=== PATIENT | male | born 1965 | race Caucasian/White ===

== ENCOUNTER 2016-07-01 05:14 | Day surgery (SDC) | payer OTHER ==
[2016-07-01] MEDS ORDERED: LACTATED RINGERS 1,000 ML IV ONE ×2 (14:01→17:16)
[2016-07-01] MEDS ORDERED: ceFAZolin 1 GM VIAL ONE (14:52)
[2016-07-01] MEDS ORDERED: BUPIVACAINE 0.5%-EPI 1:200000 PF 30 ML VIAL SUBQ ONE (16:09)
[2016-07-01] MEDS ORDERED: PROPOFOL 200 MG/20 ML VIAL IVP ONE (16:15)
[2016-07-01] MEDS ORDERED: LIDOCAINE-MPF 2% 5 ML VIAL IM ONE (16:15)
[2016-07-01] MEDS ORDERED: ONDANSETRON 4 MG/2 ML VIAL IVP ONE (16:15)
[2016-07-01] MEDS ORDERED: fentaNYL 100 MCG/2 ML VIAL IVP ONE (16:15)
[2016-07-01] MEDS ORDERED: MIDAZOLAM 2 MG/2 ML VIAL IVP ONE (16:15)
[2016-07-01] MEDS ORDERED: DEXAMETHASONE 4 MG/ML VIAL IVP ONE (16:15)
== END 2016-07-01 08:46 | disposition home or self-care (01) ==
PROC: 07BJ0ZX Excision of Left Inguinal Lymphatic, Open Approach, Diagnostic (ICD-10-PCS; 2016-07-01)
PROC: 0YU60JZ Supplement Left Inguinal Region with Synthetic Substitute, Open Approach (ICD-10-PCS; principal; 2016-07-01 14:15)
DX: K40.30 Unilateral inguinal hernia, with obstruction, without gangrene, not specified as recurrent (principal); I88.9 Nonspecific lymphadenitis, unspecified; F17.200 Nicotine dependence, unspecified, uncomplicated; Z88.0 Allergy status to penicillin
CPT/HCPCS: 36415; 38500; 49507; 74176; 80053; 83690; 85025; 93005; 99284; C1781; J7120

== ENCOUNTER 2017-03-25 07:19 | Emergency (ER) | payer OTHER ==
--- NOTE | 2017-03-25 07:22 | ED Physician Documentation ---
PD HPI CHEST PAIN - Stated complaint Stated Complaint: CHEST PX/LEFT ARM SORE - History obtained from History obtained from: Patient - History of Present Illness Timing - onset: Today (he had some intermittent chest pain yesterday, then onset steady chest pain about an hour or so [employer].) Timing - onset during: Rest Timing - duration: Hours (1) Timing - details: Abrupt onset, Still present Quality: Tightness, Aching Location: Substernal Radiation: Left upper extremity Associated symptoms: No: Shortness of air, Nausea, Palpitations, Cough Similar symptoms before: Has not had sx before Recently seen: Not recently seen Review of Systems Constitutional: denies: Fever Nose: denies: Rhinorrhea / runny nose, Congestion Throat: denies: Sore throat Cardiac: reports: Chest pain / pressure (some yesterday intermittently.) Respiratory: denies: Cough GI: denies: Abdominal Pain, Nausea, Vomiting Skin: denies: Rash, Lesions PD PAST MEDICAL HISTORY - Past Medical History Cardiovascular: None Respiratory: None Endocrine/Autoimmune: None GI: None : None HEENT: Chronic vision loss Psych: Anxiety Musculoskeletal: None Derm: None - Past Surgical History Past Surgical History: No - Present Medications Home Medications: Ambulatory Orders Medication Instructions Recorded Confirmed Fexofenadine HCl [Marilee Allergy] 60 mg PO DAILY 03/25/17 03/25/17 - Allergies Allergies/Adverse Reactions: Allergies Allergy/AdvReac Type Severity Reaction Status Date / Time Penicillins Allergy Unknown Verified 03/25/17 07:28 - Social History Does the pt smoke?: Yes Smoking Status: Current every day smoker Does the pt drink ETOH?: Yes Does the pt have substance abuse?: No - Family History Family history: reports: Unknown - Immunizations Immunizations are current?: Yes - POLST Patient has POLST: No PD ED PE NORMAL - Vitals Vital signs reviewed: Yes - General General: Alert and oriented X 3, No acute distress, Well developed/nourished - HEENT HEENT: Moist mucous membranes, Pharynx benign - Neck Neck: Supple, no meningeal sign, No adenopathy - Cardiac Cardiac: RRR, No murmur - Respiratory Respiratory: Clear bilaterally - Abdomen Abdomen: Soft, Non tender - Derm Derm: Normal color, Warm and dry - Extremities Extremities: Normal ROM s pain, No edema, No calf tenderness / cord - Neuro Neuro: Alert and oriented X 3, No motor deficit, Normal speech Results - Vitals Vitals: Vital Signs - 24 hr 03/25/17 07:24 Temperature 36.8 C Heart Rate 77 Respiratory 16 Rate Blood Pressure 150/90 H O2 Saturation 98 Oxygen O2 Source Room air - EKG (time done) 07:23 Rate: Rate (enter#) (72) Rhythm: NSR Intervals: Normal AR QRS: Normal Ischemia: ST elevation c/w ischemia (Inferior leads c/w STEMI) PD MEDICAL DECISION MAKING - ED course Complexity details: reviewed results (STEMI on ECG, and initiated STEMI treatment. ), considered differential, d/w patient - Critical Care Time(min): 20 Time Includes: Direct patient care, Reassess patient, Document care, Coordinate care, Medical consult, See progress note Procedures excluded from critical care time: EKG Departure - Departure Disposition: 02 Transfer Acute Care Hosp Clinical Impression: ST elevation myocardial infarction (STEMI) of inferior wall Condition: Critical Record reviewed to determine appropriate education?: Yes
[2017-03-25] MEDS ORDERED: CLOPIDOGREL 300 MG TABLET PO STA (07:32)
[2017-03-25] MEDS ORDERED: METOPROLOL 5 MG/5 ML VIAL IVP STA (07:32)
[2017-03-25] MEDS ORDERED: ASPIRIN CHEW 81 MG TABLET PO STA (07:32)
[2017-03-25] MEDS ORDERED: SODIUM CHLORIDE 0.9% 500 ML IV ONE (07:33)
[2017-03-25] MEDS ORDERED: HEPARIN 5,000 UNIT/ML VIAL IVP STA (07:38)
[2017-03-25] MEDS ORDERED: HEPARIN 25,000 UNITS/500 ML NS 25,000 UNIT/500 ML BAG IV STA (07:38)
[2017-03-25] MEDS ORDERED: CLOPIDOGREL 300 MG TABLET PO ONE (07:43)
[2017-03-25] MEDS ORDERED: METOPROLOL 5 MG/5 ML VIAL IVP ONE (07:43)
[2017-03-25] MEDS ORDERED: ASPIRIN CHEW 81 MG TABLET ONE (07:43)
[2017-03-25] MEDS ORDERED: HEPARIN 25,000 UNITS/500 ML NS 25,000 UNIT/500 ML BAG IV ONE (07:43)
--- NOTE | 2017-03-25 07:53 | XRAY Preliminary Report ---
Exam: XR CHEST 1 VIEW IMPRESSION: Normal single view chest. [facility] SITE ID: [id number]
--- NOTE | 2017-03-25 07:55 | XRAY Report ---
EXAM: CHEST RADIOGRAPHY EXAM DATE: 03/25/2017 07:41 AM. CLINICAL HISTORY: Chest pain. COMPARISON: None. TECHNIQUE: 1 view. FINDINGS: Lungs/Pleura: No focal opacities evident. No pleural effusion. No pneumothorax. Mediastinum: Within exam limitations, the cardiomediastinal contour is normal. Other: None. IMPRESSION: Normal single view chest. [facility] Referring Provider Line: [phone] SITE ID: [id number]
[2017-03-25] MEDS ORDERED: HEPARIN 5,000 UNIT/ML VIAL ONE (07:56)
[2017-03-25 08:06] LABS: BASOPHILS # (AUTO) 0.1 10^3/uL (0.0-0.1); BASOPHILS % (AUTO) 1.3 %; EOSINOPHILS # (AUTO) 0.2 10^3/uL (0.0-0.7); EOSINOPHILS % (AUTO) 3.1 %; HCT - HEMATOCRIT 45.1 % (42.0-52.0); HGB - HEMOGLOBIN 15.7 g/dL (14.0-18.0); LYMPHOCYTES # (AUTO) 2.7 10^3/uL (1.5-3.5); LYMPHOCYTES % (AUTO) 33.9 %; MEAN CORPUSCULAR HEMOGLOBIN 33.2 pg (27.0-31.0); MEAN CORPUSCULAR HGB CONC 34.8 g/dL (32.0-36.0); MEAN CORPUSCULAR VOLUME 95.7 fL (80.0-94.0); MEAN PLATELET VOLUME 8.8 fL (7.4-11.4); MONOCYTES # (AUTO) 0.5 10^3/uL (0.0-1.0); MONOCYTES % (AUTO) 6.5 %; NEUTROPHILS # (AUTO) 4.3 10^3/uL (1.5-6.6); NEUTROPHILS % (AUTO) 55.2 %; NUCLEATED RED BLOOD CELLS AUTO 0.1 /100WBC; RED BLOOD COUNT 4.72 10^6/uL (4.70-6.10); RED CELL DISTRIBUTION WIDTH 13.4 % (12.0-15.0); UNCORRECTED WHITE BLOOD COUNT 7.8 x10^3/uL; WHITE BLOOD COUNT 7.8 x10^3/uL (4.8-10.8)
[2017-03-25 08:08] VITALS: BP 138/90
[2017-03-25 08:19] LABS: ALBUMIN/GLOBULIN RATIO 1.5 (1.0-2.2); BILIRUBIN,TOTAL 0.5 mg/dL (0.2-1.0); CALCIUM 9.5 mg/dL (8.5-10.3); CREATININE 0.9 mg/dL (0.6-1.2); POTASSIUM 4.3 mmol/L (3.5-5.0); TOTAL PROTEIN 7.7 g/dL (6.7-8.2)
== END 2017-03-25 07:52 | disposition short-term general hospital (02) ==
LOC: ED 07:19
DX: I21.19 ST elevation (STEMI) myocardial infarction involving other coronary artery of inferior wall (principal); F17.200 Nicotine dependence, unspecified, uncomplicated
CPT/HCPCS: 36415; 71010; 80053; 83690; 84484; 85025; 93005; 96374; 96375; 96376; 99284; 99285; A9270

== ENCOUNTER 2017-03-25 07:57 | Outpatient (CLI) | payer OTHER | END 2017-03-25 07:58 | disposition short-term general hospital (02) | LOC: EMS 07:57 | PROVIDERS: ATTEND Surgery | DX: I21.3 ST elevation (STEMI) myocardial infarction of unspecified site (principal) | CPT/HCPCS: A0425; A0427 ==

== ENCOUNTER 2017-03-30 09:11 | Outpatient (CLI) | payer OTHER | END 2017-03-30 09:12 | disposition short-term general hospital (02) | LOC: EMS 09:11 | PROVIDERS: ATTEND Surgery | DX: R07.9 Chest pain, unspecified (principal) | CPT/HCPCS: A0425; A0427 ==

== ENCOUNTER 2017-04-11 09:48 | Outpatient (CLI) | payer OTHER | END 2017-04-11 09:49 | disposition short-term general hospital (02) | LOC: EMS 09:48 | PROVIDERS: ATTEND Surgery | DX: R07.89 Other chest pain (principal) | CPT/HCPCS: A0170; A0425; A0427 ==

== ENCOUNTER 2017-12-14 12:39 | Outpatient (CLI) | payer OTHER ==
[2017-12-14 13:16] LABS: BASOPHILS # (AUTO) 0.1 10^3/uL (0.0-0.1); BASOPHILS % (AUTO) 0.8 %; EOSINOPHILS # (AUTO) 0.1 10^3/uL (0.0-0.7); EOSINOPHILS % (AUTO) 1.4 %; HGB - HEMOGLOBIN 13.2 g/dL (14.0-18.0); LYMPHOCYTES # (AUTO) 2.2 10^3/uL (1.5-3.5); LYMPHOCYTES % (AUTO) 33.1 %; MEAN CORPUSCULAR HEMOGLOBIN 32.7 pg (27.0-31.0); MEAN CORPUSCULAR HGB CONC 34.9 g/dL (32.0-36.0); MEAN CORPUSCULAR VOLUME 93.8 fL (80.0-94.0); MEAN PLATELET VOLUME 7.7 fL (7.4-11.4); MONOCYTES # (AUTO) 0.4 10^3/uL (0.0-1.0); NEUTROPHILS % (AUTO) 58.7 %; PLT - PLATELET COUNT 178 10^3/uL (130-450); RED BLOOD COUNT 4.04 10^6/uL (4.70-6.10); RED CELL DISTRIBUTION WIDTH 13.6 % (12.0-15.0); WHITE BLOOD COUNT 6.7 x10^3/uL (4.8-10.8)
[2017-12-14 13:20] LABS: PT - PROTHROMBIN TIME 11.4 secs (9.9-12.6)
[2017-12-14 13:24] LABS: ALBUMIN 4.4 g/dL (3.2-5.5); ALBUMIN/GLOBULIN RATIO 1.6 (1.0-2.2); BILIRUBIN,TOTAL 0.8 mg/dL (0.2-1.0); CALCIUM 9.2 mg/dL (8.5-10.3); CREATININE 0.9 mg/dL (0.6-1.2); TOTAL PROTEIN 7.2 g/dL (6.7-8.2)
== END 2017-12-14 12:40 | disposition home or self-care (01) ==
LOC: LAB 12:39
PROVIDERS: ATTEND Internal Medicine Cardiovascular Disease
DX: E78.5 Hyperlipidemia, unspecified (principal)
CPT/HCPCS: 36415; 80053; 85025; 85610; 85730

== ENCOUNTER 2018-02-17 07:31 | Outpatient (CLI) | payer OTHER ==
[2018-02-17 07:52] LABS: BASOPHILS # (AUTO) 0.1 10^3/uL (0.0-0.1); BASOPHILS % (AUTO) 1.4 %; EOSINOPHILS # (AUTO) 0.1 10^3/uL (0.0-0.7); EOSINOPHILS % (AUTO) 1.7 %; HGB - HEMOGLOBIN 14.1 g/dL (14.0-18.0); LYMPHOCYTES # (AUTO) 2.2 10^3/uL (1.5-3.5); LYMPHOCYTES % (AUTO) 39.6 %; MEAN CORPUSCULAR HEMOGLOBIN 32.9 pg (27.0-31.0); MEAN CORPUSCULAR HGB CONC 35.4 g/dL (32.0-36.0); MEAN CORPUSCULAR VOLUME 92.9 fL (80.0-94.0); MONOCYTES # (AUTO) 0.4 10^3/uL (0.0-1.0); MONOCYTES % (AUTO) 6.8 %; NEUTROPHILS # (AUTO) 2.8 10^3/uL (1.5-6.6); NEUTROPHILS % (AUTO) 50.5 %; PLT - PLATELET COUNT 163 10^3/uL (130-450); RED BLOOD COUNT 4.29 10^6/uL (4.70-6.10); RED CELL DISTRIBUTION WIDTH 13.1 % (12.0-15.0); WHITE BLOOD COUNT 5.5 x10^3/uL (4.8-10.8)
[2018-02-17 08:13] LABS: ALBUMIN 4.4 g/dL (3.2-5.5); ALBUMIN/GLOBULIN RATIO 1.5 (1.0-2.2); ALKALINE PHOSPHATASE 55 IU/L (42-121); ALT ALANINE AMINOTRANSFERASE 54 IU/L (10-60); AST ASPARTATE AMINOTRANSFERASE 33 IU/L (10-42); BILIRUBIN,TOTAL 0.5 mg/dL (0.2-1.0); BUN - BLOOD UREA NITROGEN 18 mg/dL (6-20); CALCIUM 9.3 mg/dL (8.5-10.3); CARBON DIOXIDE - CO2 24 mmol/L (21-32); CHLORIDE 105 mmol/L (101-111); CK- CREATINE KINASE 98 IU/L (22-269); CREATININE 0.9 mg/dL (0.6-1.2); GFR - MDRD 88 (>89); GLUCOSE 109 mg/dL (70-100); SODIUM 139 mmol/L (135-145); TOTAL PROTEIN 7.3 g/dL (6.7-8.2)
[2018-02-17 08:18] LABS: CRP - C-REACTIVE PROTEIN < 1.0 mg/dL (0-1.0)
== END 2018-02-17 07:32 | disposition home or self-care (01) ==
LOC: LAB 07:31
PROVIDERS: ATTEND Internal Medicine Cardiovascular Disease
DX: M79.10 Myalgia, unspecified site (principal); K70.0 Alcoholic fatty liver; I25.10 Atherosclerotic heart disease of native coronary artery without angina pectoris
CPT/HCPCS: 36415; 80053; 82550; 85025; 85651; 86140

== ENCOUNTER 2020-03-02 11:00 | Emergency (ER) | payer OTHER ==
--- NOTE | 2020-03-02 11:42 | ED Physician Documentation ---
PD HPI FOCAL NEURO - Stated complaint Stated Complaint: LT ARM/LEG NUMBNESS, CHEST SORE LT SIDE - Chief complaint Chief Complaint: Cardiac - History obtained from History obtained from: Patient - Additional information Additional information: 55-year-old gentleman with history of hypercholesterolemia, coronary disease, stents in place, and quit smoking 3 years ago presents with mild left upper chest pain and left arm and leg numbness. It started last night. He noted the arm and leg numbness last night. Went away. Recurred this morning around 7 AM. Also with some chest soreness that he only feels if he presses just below the left clavicle. There is no shortness of breath. No weakness. No headache. Review of Systems Ten Systems: 10 systems reviewed and negative Constitutional: denies: Fever, Chills Cardiac: denies: Palpitations Respiratory: denies: Dyspnea, Cough GI: denies: Abdominal Pain PD PAST MEDICAL HISTORY - Past Medical History Cardiovascular: None Respiratory: None Endocrine/Autoimmune: None GI: None : None HEENT: Chronic vision loss Psych: Anxiety Musculoskeletal: None Derm: None - Past Surgical History Past Surgical History: No - Present Medications Home Medications: Ambulatory Orders Medication Instructions Recorded Confirmed Fexofenadine HCl [Marilee Allergy] 60 mg PO DAILY 03/25/17 03/25/17 - Allergies Allergies/Adverse Reactions: Allergies Allergy/AdvReac Type Severity Reaction Status Date / Time Penicillins Allergy Unknown Verified 03/02/20 11:11 - Social History Does the pt smoke?: Yes Smoking Status: Current every day smoker Does the pt drink ETOH?: Yes Does the pt have substance abuse?: No - Immunizations Immunizations are current?: Yes - POLST Patient has POLST: No PD ED PE NORMAL - Vitals Vital signs reviewed: Yes - General General: Alert and oriented X 3, No acute distress - HEENT HEENT: PERRL, EOMI - Neck Neck: Supple, no meningeal sign, No bony TTP - Cardiac Cardiac: RRR, No murmur - Respiratory Respiratory: No respiratory distress, Clear bilaterally - Abdomen Abdomen: Normal bowel sounds, Soft, Non tender - Back Back: No CVA TTP, No spinal TTP - Extremities Extremities: No edema, No calf tenderness / cord - Neuro Neuro: Alert and oriented X 3, No motor deficit, No sensory deficit, Normal speech NIHSS - Time Time: 11:30 - Level of Consciousness Level of consciousness: (0) Alert, Keenly responsive LOC Questions: (0) Answers both Q's correct LOC Commands: (0) Performs both correctly - Gaze Best Gaze: (0) Normal - Visual Visual: (0) No loss - Facial Palsy Facial Palsy: (0) Normal, symmetrical movement - Motor Arms (both separate) Motor Arm (right): (0) No drift Motor Arm (left): (0) No drift - Motor Legs (both separate) Motor Leg (right): (0) No drift Motor Leg (left): (0) No drift - Limb Ataxia Limb Ataxia: (0) Absent - Sensory Sensory: (0) Normal - Best Language Best Language: (0) No aphasia - Dysarthria Dysarthria: (0) Normal - Extinction and Inattention (formally neg Extinction and inattention: (0) No abnormality - Total Score/Results Total Score/Result: 0 Results - Vitals Vitals: Vital Signs - 24 hr 03/02/20 03/02/20 11:12 13:00 Temperature 36.8 C Heart Rate 66 60 Respiratory 16 13 Rate Blood Pressure 141/85 H 125/80 O2 Saturation 98 97 Oxygen O2 Source Room air - EKG (time done) 1116 Rate: Rate (enter#) (65) Rhythm: NSR [place]: Normal Intervals: Normal MA Ischemia: Normal ST segments, Q waves (inferior) Computer interpretation: Agree with computer - Labs Labs: Laboratory Tests 03/02/20 03/02/20 03/02/20 11:27 11:27 11:27 WBC 6.6 RBC 4.53 L Hgb 14.4 Hct 42.5 MCV 93.8 MCH 31.8 H MCHC 33.9 RDW 12.6 Plt Count 186 MPV 10.1 Neut # (Auto) 3.8 Lymph # (Auto) 2.3 [place] # (Auto) 0.4 Eos # (Auto) 0.1 Baso # (Auto) 0.1 Absolute Nucleated RBC 0.00 Nucleated RBC % 0.0 Sodium 136 Potassium 4.2 Chloride 102 Carbon Dioxide 23 Anion Gap 11.0 BUN 22 H Creatinine 0.9 Estimated GFR (MDRD) 87 L Glucose 107 H Calcium 9.7 Total Bilirubin 0.9 AST 26 ALT 44 Alkaline Phosphatase 55 Troponin I High Sens 3.3 Total Protein 7.6 Albumin 4.7 Globulin 2.9 Albumin/Globulin Ratio 1.6 Lipase 28 PD MEDICAL DECISION MAKING - ED course ED course: 55-year-old gentleman with left-sided numbness, now very atypical pain. No evidence of ischemia on work-up, negative stroke scale and negative angiography of the head and neck except for atherosclerosis but nothing occlusive. Departure - Departure Disposition: 01 Home, Self Care Clinical Impression: Chest wall pain, Paresthesia Condition: Good Record reviewed to determine appropriate education?: Yes Instructions: ED Chest Pain Atypical Unkn Cause Comments: Continue current medications and follow-up with your doctor, next available appointment. Return if worsening. We did CT angiography of the head and neck today, you do have some plaque in your carotid arteries but nothing occlusive. Your brain looks fine. Chest x-ray was normal. Testing on the heart including EKG and troponin testing was normal. Discharge Date/Time: 03/02/20 13:58
[2020-03-02 11:48] LABS: BASOPHILS # (AUTO) 0.1 10^3/uL (0.0-0.1); BASOPHILS % (AUTO) 0.8 %; EOSINOPHILS # (AUTO) 0.1 10^3/uL (0.0-0.7); EOSINOPHILS % (AUTO) 1.4 %; HGB - HEMOGLOBIN 14.4 g/dL (14.0-18.0); LYMPHOCYTES # (AUTO) 2.3 10^3/uL (1.5-3.5); LYMPHOCYTES % (AUTO) 34.5 %; MEAN CORPUSCULAR HEMOGLOBIN 31.8 pg (27.0-31.0); MEAN CORPUSCULAR HGB CONC 33.9 g/dL (32.0-36.0); MEAN CORPUSCULAR VOLUME 93.8 fL (80.0-94.0); MEAN PLATELET VOLUME 10.1 fL (7.4-11.4); MONOCYTES # (AUTO) 0.4 10^3/uL (0.0-1.0); MONOCYTES % (AUTO) 5.8 %; NEUTROPHILS # (AUTO) 3.8 10^3/uL (1.5-6.6); NEUTROPHILS % (AUTO) 57.3 %; PLT - PLATELET COUNT 186 10^3/uL (130-450); RED BLOOD COUNT 4.53 10^6/uL (4.70-6.10); RED CELL DISTRIBUTION WIDTH 12.6 % (12.0-15.0); WHITE BLOOD COUNT 6.6 x10^3/uL (4.8-10.8)
[2020-03-02] MEDS ORDERED: IOVERSOL 320 100 ML VIAL IVP ONE ×2 (11:55→18:17)
[2020-03-02 12:01] LABS: ALBUMIN 4.7 g/dL (3.2-5.5); ALBUMIN/GLOBULIN RATIO 1.6 (1.0-2.2); BILIRUBIN,TOTAL 0.9 mg/dL (0.2-1.0); CALCIUM 9.7 mg/dL (8.5-10.3); CREATININE 0.9 mg/dL (0.6-1.2); TOTAL PROTEIN 7.6 g/dL (6.7-8.2)
--- NOTE | 2020-03-02 12:20 | XRAY Report ---
PROCEDURE: Chest 1 View X-Ray INDICATIONS: Chest Pain TECHNIQUE: One view of the chest was acquired. COMPARISON: 03/25/2017 FINDINGS: Surgical changes and devices: None. Lungs and pleura: No pleural effusions or pneumothorax. Lungs are clear. Mediastinum: Mediastinal contours appear normal. Heart size is normal. Bones and chest wall: No suspicious bony lesions. Overlying soft tissues appear unremarkable. IMPRESSION: No acute cardiopulmonary pathology. Reviewed by: Liam Gary MD on 03/02/2020 11:18 AM LALITA Approved by: Liam Gary MD on 03/02/2020 11:18 AM AKDT Station ID: [id number]
--- NOTE | 2020-03-02 12:44 | CT Report ---
PROCEDURE: ANGIO HEAD W/WO INDICATIONS: Left sided numbness CONTRAST: IV CONTRAST: Optiray 320 ml: 80 PO CONTRAST: *NO PO CONTRAST TECHNIQUE: Precontrast 4.5 mm thick angled axial sections acquired from the foramen magnum to the vertex. Afte r the administration of intravenous contrast, 1 mm thick sections acquired through the [place] of [place] is. Postcontrast 4.5 mm thick sections then re-acquired from the foramen magnum to the vertex. 3-di mensional [id number] (MIP) and/or volume rendering reformats were acquired of the c entral intracranial vasculature. For radiation dose reduction, the following was used: automated ex posure control, adjustment of mA and/or kV according to patient size. COMPARISON: Concurrent CT angiogram of the neck. FINDINGS: Image quality: Excellent. Anterior circulation: Intracranial internal carotid arteries are normal in size and flow. There is m ild scattered atherosclerotic plaque within the cavernous segments of the internal carotid arteries b ilaterally with mild multifocal narrowing. The paired anterior cerebral arteries is patent bilaterall y. The flow middle cerebral arteries is patent bilaterally. The anterior communicating artery is see n. No aneurysms are seen. Posterior circulation: There is a right dominant vertebral basilar system with a diminutive left flavio tebral artery. Visualized portions of the vertebral arteries appear patent, and join to form a normal appearing basilar artery. Flow within the posterior cerebral arteries appears patent bilaterally. No aneurysms are seen. CSF spaces: Ventricles are normal in size and shape. Basal cisterns are patent. No extra-axial flu id collections. Brain: No intracranial hemorrhage, mass, or mass effect. Allen-white matter interface appears intact. Skull and face: Calvarium and facial bones appear intact, without suspicious lesions. Sinuses: Visualized sinuses and mastoids are clear. IMPRESSION: 1. No acute intracranial abnormality. 2. No high-grade stenosis, occlusion, or filling defects within the central intracranial arteries. Reviewed by: Rodrigo Patel MD on 03/02/2020 12:43 PM PDT Approved by: Rodrigo Patel MD on 03/02/2020 12:43 PM PDT Station ID: [id number]
--- NOTE | 2020-03-02 12:54 | CT Report ---
PROCEDURE: ANGIO NECK W INDICATIONS: L sided numbness CONTRAST: IV CONTRAST: Optiray 320 ml: 80 PO CONTRAST: *NO PO CONTRAST TECHNIQUE: After the administration of intravenous contrast, 1.5 mm axial sections acquired from the aortic arch to the [place] of [place]. Coronal 3-D maximum intensity projection (MIP) and/or volume rendering ref ormats were then performed. For radiation dose reduction, the following was used: automated exposur e control, adjustment of mA and/or kV according to patient size. COMPARISON: Concurrent CT angiogram of the head. FINDINGS: Image quality: Excellent. Carotid system: The great vessels demonstrate a four-vessel aortic arch with separate origin of the left vertebral artery as they arise from the aortic arch. The origins of the common carotid arteries appear patent. The common carotid arteries demonstrate normal calibers and courses. There is athero sclerotic plaque at the carotid bifurcations with mild narrowing of less than 50% in the right caroti d bulb and minimal narrowing in the left carotid bulb. The internal carotid arteries demonstrate norm al caliber and course. Posterior circulation: The origins of the vertebral arteries appear patent. The more superior porti ons of the vertebral arteries demonstrate normal course and caliber. They join to form a normal appe aring basilar artery. Soft tissues: Visualized neck soft tissues demonstrate no suspicious abnormalities. The thyroid dem onstrates no discrete nodules. There are moderate to severe centrilobular and paraseptal emphysematou s changes within the visualized lungs. Radiology no other than a vague radiology no abnormally no dasha ging Bones: No suspicious bony lesions. Visualized cervical spine demonstrates mild multilevel degenerat atul disc disease and mild facet arthropathy throughout the cervical spine. IMPRESSION: 1. No high-grade stenosis or occlusion of the neck arteries. 2. Mild narrowing of less than 50% in the right carotid bulb and minimal narrowing in the left caroti d bulb. The estimate of stenosis included in the report of the imaging study was calculated using the NASCET method Reviewed by: Rodrigo Patel MD on 03/02/2020 12:53 PM PDT Approved by: Rodrigo Patel MD on 03/02/2020 12:53 PM PDT Station ID: [id number]
[2020-03-02 13:05] VITALS: BP 125/80
== END 2020-03-02 13:58 | disposition home or self-care (01) ==
LOC: ED 11:00
DX: R07.89 Other chest pain (principal); R20.2 Paresthesia of skin; R20.0 Anesthesia of skin; I25.10 Atherosclerotic heart disease of native coronary artery without angina pectoris; Z95.5 Presence of coronary angioplasty implant and graft; E78.00 Pure hypercholesterolemia, unspecified; Z87.891 Personal history of nicotine dependence
CPT/HCPCS: 36415; 70496; 70498; 71045; 80053; 83690; 84484; 85025; 93005; 99284; Q9967

== ENCOUNTER 2020-12-08 10:00 | Outpatient (CLI) | payer OTHER ==
[2020-12-08 10:45] LABS: BASOPHILS # (AUTO) 0.1 10^3/uL (0.0-0.1); BASOPHILS % (AUTO) 0.7 %; EOSINOPHILS # (AUTO) 0.1 10^3/uL (0.0-0.7); EOSINOPHILS % (AUTO) 1.1 %; HCT - HEMATOCRIT 44.3 % (42.0-52.0); HGB - HEMOGLOBIN 15.5 g/dL (14.0-18.0); LYMPHOCYTES # (AUTO) 2.3 10^3/uL (1.5-3.5); LYMPHOCYTES % (AUTO) 28.5 %; MEAN CORPUSCULAR HEMOGLOBIN 32.2 pg (27.0-31.0); MEAN CORPUSCULAR VOLUME 91.9 fL (80.0-94.0); MEAN PLATELET VOLUME 9.7 fL (7.4-11.4); MONOCYTES # (AUTO) 0.5 10^3/uL (0.0-1.0); MONOCYTES % (AUTO) 6.1 %; NEUTROPHILS # (AUTO) 5.1 10^3/uL (1.5-6.6); NEUTROPHILS % (AUTO) 63.4 %; PLT - PLATELET COUNT 209 10^3/uL (130-450); RED BLOOD COUNT 4.82 10^6/uL (4.70-6.10); RED CELL DISTRIBUTION WIDTH 12.8 % (12.0-15.0); WHITE BLOOD COUNT 8.1 x10^3/uL (4.8-10.8)
== END 2020-12-08 10:01 | disposition home or self-care (01) ==
LOC: LAB 10:00
PROVIDERS: ATTEND Internal Medicine Cardiovascular Disease
DX: I25.2 Old myocardial infarction (principal)
CPT/HCPCS: 36415; 85025

== ENCOUNTER 2023-10-03 07:11 | Outpatient (CLI) | payer OTHER ==
--- NOTE | 2023-10-03 11:45 | CT Report ---
PROCEDURE: Lung Cancer Screen INDICATIONS: EX SMOKER TECHNIQUE: A CT scan of the chest was performed. Intravenous contrast media was not administered. Images were re corded and evaluated at appropriate window settings. Reformats: axial MIP of the chest, coronal and s agittal. For radiation dose reduction, the following was used: automated exposure control, adjustment of mA and/or kV according to patient size. COMPARISON: Chest x-ray 03/02/2020. FINDINGS: Image quality: Excellent. Lungs and pleura: No pleural effusions. No pneumothorax. Biapical pleural parenchymal scarring. Mild centrilobular emphysematous changes. Scattered pulmonary nodules measuring 2 mm or less are present. Mediastinum: Heart size is normal. No pericardial effusion. No large vessel abnormality. Atherosclero tic vascular calcifications. No mediastinal adenopathy by size criteria. Severe multivessel coronary artery calcifications. Chest wall and lower neck: Thyroid is unremarkable. No axillary or supraclavicular adenopathy by size . Bones: No aggressive osseous abnormality. Degenerative changes of the spine. Upper Abdomen: Unremarkable. IMPRESSION: Scattered pulmonary micronodules measuring 2 mm or less. Lung RAD: 2 - Benign. Recommendation: Continue annual screening in 12 Months with LDCT Non-Lung Significant Findings: Coronary Arterial Calcification - Moderate or Severe. Consider cardiol ogy referral. Reviewed by: Luther Man MD on 10/03/2023 10:43 AM LALITA Approved by: Luther Man MD on 10/03/2023 10:43 AM LALITA Station ID: [id number]
== END 2023-10-03 07:12 | disposition home or self-care (01) ==
LOC: DI 07:11
PROVIDERS: ATTEND Registered Nurse
DX: Z12.2 Encounter for screening for malignant neoplasm of respiratory organs (principal); R91.8 Other nonspecific abnormal finding of lung field; I25.10 Atherosclerotic heart disease of native coronary artery without angina pectoris; Z87.891 Personal history of nicotine dependence